=== PATIENT | female | born 1985 | race African-American/Black ===

== ENCOUNTER 2022-04-04 20:58 | Emergency (ER) | payer SELFPAY | END 2022-04-05 01:00 | disposition home or self-care (01) | LOC: CSHERS 20:58 | DX: O99.891 Other specified diseases and conditions complicating pregnancy (principal); R10.9 Unspecified abdominal pain; O99.331 Smoking (tobacco) complicating pregnancy, first trimester; F17.210 Nicotine dependence, cigarettes, uncomplicated; Z3A.01 Less than 8 weeks gestation of pregnancy | CPT/HCPCS: 76856 ==

== ENCOUNTER 2022-09-19 07:46 | Day surgery (SDC) | payer OTHER ==
[2022-09-19] MEDS ORDERED: hydrALAZINE 20 MG/ML VIAL SLOW IVP PRN (08:10)
[2022-09-19 08:18] VITALS: BMI 37.5
[2022-09-19] MEDS ORDERED: Lactated Ringer's 1,000 ML IV SCH (08:45)
[2022-09-19 09:35] LABS: #Eosinphils 0.1 10x3/uL (0.0-0.5); #Monocytes 0.7 10x3/uL (0.0-1.1); #Neutrophils 6.9 10x3/uL (1.5-8.4); %Basophils 0.1 % (0.0-2.0); %Eosinophils 0.9 % (0.0-6.0); %Lymphocytes 17.6 % (18.0-47.0); %Monocytes 7.4 % (0.0-10.0); %Neutrophils 73.1 % (40.0-75.0); Hemoglobin 10.1 g/dL (12.0-15.5); Mean Corpuscular HGB CONC 32.6 g/dL (32.0-36.0); Mean Corpuscular Hemoglobin 30.2 pg (27.0-33.0); Mean Corpuscular Volume 92.8 fl (81.6-98.3); Mean Platelet Volume 10.7 fl (7.4-10.4); Platelet Count 206 10x3/uL (150-450); RBC Distribution Width 13.5 % (11.5-14.5); Red Blood Cell (RBC) Count 3.34 10x6/uL (3.90-5.03); White Blood Cell (WBC) Count 9.4 10x3/uL (3.5-10.5)
[2022-09-19 09:36] LABS: ALT (SGPT) 12 U/L (8-55); AST (SGOT) 10 U/L (5-34); Alkaline Phosphatase 48 U/L (40-110); Anion Gap 13 mmol/L (10-20); BUN (Urea Nitrogen) 7 mg/dL (7.0-18.7); Bilirubin, Total 0.2 mg/dL (0.2-1.2); Calc. Creatinine Clearance 176 mL/min (70-130); Calcium 8.8 mg/dL (7.8-10.44); Carbon Dioxide 23 mmol/L (22-29); Chloride 104 mmol/L (98-107); Estimated GFR 117; Globulin 2.8 g/dL (2.4-3.5); Glucose 141 mg/dL (70-105); Protein, Total 5.8 g/dL (6.0-8.3); Sodium 137 mmol/L (136-145)
[2022-09-19 10:48] LABS: Bilirubin Neg (Negative); Blood, Urine 10 (Negative); Clarity Clear (Clear); Glucose, Urine (Dipstick) Normal (Negative); Ketone, Urine 5 mg/dL (Negative); Leukocyte 25 (Negative); Nitrite Negative (Negative); Protein, Urine (Dipstick) Negative (Neg-Trace); Specific Gravity, Urine 1.015 (1.005-1.030)
[2022-09-19 11:02] LABS: Bacteria/HPF Rare-Few HPF (None Seen); CAUTI Indications for Culture Pregnancy; RBC/HPF 0-3 HPF (0-3); Squamous Epithelial 0-3 HPF (0-3); Urine Culture Reflex Yes Yes; WBC/HPF 0-3 HPF (0-3)
== END 2022-09-19 11:10 | disposition home or self-care (01) ==
LOC: CSHLD/OP 07:46
PROVIDERS: ATTEND Family Medicine
DX: O26.893 Other specified pregnancy related conditions, third trimester (principal); R10.2 Pelvic and perineal pain; O24.419 Gestational diabetes mellitus in pregnancy, unspecified control; O99.343 Other mental disorders complicating pregnancy, third trimester; F41.9 Anxiety disorder, unspecified; O34.211 Maternal care for low transverse scar from previous cesarean delivery; O09.213 Supervision of pregnancy with history of pre-term labor, third trimester; O99.013 Anemia complicating pregnancy, third trimester; D64.9 Anemia, unspecified; O99.283 Endocrine, nutritional and metabolic diseases complicating pregnancy, third trimester; E86.0 Dehydration; Z87.59 Personal history of other complications of pregnancy, childbirth and the puerperium; Z3A.29 29 weeks gestation of pregnancy
CPT/HCPCS: 36415; 80053; 81001; 85025; 87086

== ENCOUNTER 2022-10-18 15:39 | Observation (INO) | payer OTHER ==
[2022-10-18 16:17] VITALS: BMI 38.9
[2022-10-18] MEDS ORDERED: hydrALAZINE 20 MG/ML VIAL SLOW IVP PRN (16:47)
[2022-10-18] MEDS ORDERED: Lactated Ringer's 1,000 ML IV SCH ×3 (17:00→22:15)
[2022-10-18 17:17] LABS: Bilirubin Neg (Negative); Blood, Urine 10 (Negative); Clarity Clear (Clear); Glucose, Urine (Dipstick) Normal (Negative); Ketone, Urine 50 mg/dL (Negative); Leukocyte 25 (Negative); Nitrite Negative (Negative); Protein, Urine (Dipstick) 30 mg/dl (Neg-Trace); Specific Gravity, Urine 1.025 (1.005-1.030); Urobilinogen Normal mg/dL (Less than 2)
[2022-10-18 17:42] LABS: Bacteria/HPF Rare-Few HPF (None Seen); RBC/HPF 0-3 HPF (0-3); Squamous Epithelial 0-3 HPF (0-3); WBC/HPF 0-3 HPF (0-3)
[2022-10-18 17:43] LABS: Mucous/LPF 2+ LPF (<2+)
[2022-10-18 18:03] LABS: #Eosinphils 0.1 10x3/uL (0.0-0.5); #Monocytes 0.7 10x3/uL (0.0-1.1); #Neutrophils 5.5 10x3/uL (1.5-8.4); %Basophils 0.3 % (0.0-2.0); %Eosinophils 1.5 % (0.0-6.0); %Lymphocytes 20.5 % (18.0-47.0); %Monocytes 8.8 % (0.0-10.0); %Neutrophils 68.6 % (40.0-75.0); Hemoglobin 10.2 g/dL (12.0-15.5); Mean Corpuscular HGB CONC 32.9 g/dL (32.0-36.0); Mean Corpuscular Hemoglobin 31.1 pg (27.0-33.0); Mean Corpuscular Volume 94.5 fl (81.6-98.3); Mean Platelet Volume 10.8 fl (7.4-10.4); Platelet Count 212 10x3/uL (150-450); RBC Distribution Width 14.4 % (11.5-14.5); Red Blood Cell (RBC) Count 3.28 10x6/uL (3.90-5.03)
[2022-10-18 18:08] LABS: ALT (SGPT) 17 U/L (8-55); AST (SGOT) 16 U/L (5-34); Albumin 3.3 g/dL (3.5-5.0); Alkaline Phosphatase 84 U/L (40-110); Anion Gap 12 mmol/L (10-20); BUN (Urea Nitrogen) Less than 4 mg/dL (7.0-18.7); Bilirubin, Total 0.3 mg/dL (0.2-1.2); Calc. Creatinine Clearance 205 mL/min (70-130); Calcium 9.1 mg/dL (7.8-10.44); Carbon Dioxide 20 mmol/L (22-29); Chloride 107 mmol/L (98-107); Estimated GFR 120; Globulin 3.1 g/dL (2.4-3.5); Glucose 73 mg/dL (70-105); Protein, Total 6.4 g/dL (6.0-8.3); Sodium 136 mmol/L (136-145)
[2022-10-18] MEDS ORDERED: Morphine 4 MG/ML VIAL SLOW IVP PRN (19:55)
[2022-10-18] MEDS ORDERED: Potassium Chloride 20 MEQ TAB PO SCH (20:00)
[2022-10-18] MEDS: Terbutaline Sulfate 1 MG/ML VIAL SC PRN ×3 (22:11→22:56)
[2022-10-19] MEDS ORDERED: Promethazine HCl 25 MG/ML VIAL IM PRN (00:11)
[2022-10-19] MEDS ORDERED: Ondansetron PF 4 MG/2 ML Vial IVP PRN (00:13)
[2022-10-19] MEDS ORDERED: Tranexamic Acid 1,000 MG/10 ML VIAL IVP PRN (00:14)
[2022-10-19] MEDS ORDERED: Misoprostol 200 MCG TAB PR PRN (00:14)
[2022-10-19] MEDS ORDERED: Methylergonovine 0.2 MG/ML VIAL IM PRN (00:14)
[2022-10-19] MEDS ORDERED: Diphenoxylate HCl/Atropine Tablet PO PRN (00:14)
[2022-10-19] MEDS ORDERED: Carboprost 250 MCG/ML AMP IM PRN (00:14)
[2022-10-19] MEDS ORDERED: NS w/ Oxytocin 30 units 500 ML IV SCH (00:30)
[2022-10-19] MEDS ORDERED: Betamet Acet/Betamet Na Ph 30 MG/5 ML VIAL IM SCH (00:30)
[2022-10-19] MEDS ORDERED: Morphine 4 MG/ML VIAL SLOW IVP SCH (00:30)
[2022-10-19 01:10] LABS: Hemoglobin 10.1 g/dL (12.0-15.5); Mean Corpuscular HGB CONC 32.7 g/dL (32.0-36.0); Mean Corpuscular Hemoglobin 30.9 pg (27.0-33.0); Mean Corpuscular Volume 94.5 fl (81.6-98.3); Mean Platelet Volume 11.2 fl (7.4-10.4); Platelet Count 226 10x3/uL (150-450); RBC Distribution Width 14.5 % (11.5-14.5); Red Blood Cell (RBC) Count 3.27 10x6/uL (3.90-5.03); White Blood Cell (WBC) Count 8.2 10x3/uL (3.5-10.5)
[2022-10-19 01:42] LABS: HBSAg Index 0.17 S/CO (0-0.99); Hep B Surf Ag - L&D Non-Reactive S/CO (NonReactive)
[2022-10-19 01:44] LABS: Syphilis Antibody Nonreactive (Nonreactive); Syphilis Antibody Index 0.05 S/CO (<1.00 Non-Reactive)
[2022-10-19] MEDS ORDERED: Morphine 4 MG/ML VIAL ONE (05:50)
== END 2022-10-19 09:40 | disposition home or self-care (01) ==
LOC: CSHLD/OP 15:39 → CSHLD 10-19 00:16
PROVIDERS: ADMIT Family Medicine; ATTEND Family Medicine
DX: O99.613 Diseases of the digestive system complicating pregnancy, third trimester (principal); R19.7 Diarrhea, unspecified; O99.283 Endocrine, nutritional and metabolic diseases complicating pregnancy, third trimester; E87.6 Hypokalemia; O99.333 Smoking (tobacco) complicating pregnancy, third trimester; F17.210 Nicotine dependence, cigarettes, uncomplicated; O99.343 Other mental disorders complicating pregnancy, third trimester; F32.A Depression, unspecified; O16.3 Unspecified maternal hypertension, third trimester; Z3A.33 33 weeks gestation of pregnancy; Z79.899 Other long term (current) drug therapy
CPT/HCPCS: 36415; 51701; 80053; 81001; 85025; 85027; 86780; 86850; 86900; 86901; 87340; 96360; 96361; 96372; 96374; 96375; 96376; 99284; G0378; J0702; J2270; J2550; J3105

== ENCOUNTER 2022-10-20 21:18 | Observation (INO) | payer OTHER ==
[2022-10-20] MEDS ORDERED: hydrALAZINE 20 MG/ML VIAL SLOW IVP PRN (21:43)
[2022-10-20 21:46] VITALS: BMI 38.9
[2022-10-20] MEDS ORDERED: Lactated Ringer's 1,000 ML IV SCH (22:00)
[2022-10-20] MEDS ORDERED: Terbutaline Sulfate 1 MG/ML VIAL SC PRN (23:37)
[2022-10-20] MEDS ORDERED: Terbutaline Sulfate 1 MG/ML VIAL ONE (23:41)
[2022-10-20] MEDS ORDERED: Morphine 4 MG/ML VIAL ONE (23:41)
[2022-10-20] MEDS ORDERED: Morphine 4 MG/ML VIAL SLOW IVP SCH (23:45)
== END 2022-10-21 00:55 | disposition left against medical advice (07) ==
LOC: CSHLD/OP 21:18 → CSHLD 23:34
PROVIDERS: ADMIT Family Medicine; ATTEND Family Medicine
DX: O47.03 False labor before 37 completed weeks of gestation, third trimester (principal); O99.333 Smoking (tobacco) complicating pregnancy, third trimester; F17.200 Nicotine dependence, unspecified, uncomplicated; O16.3 Unspecified maternal hypertension, third trimester; Z3A.33 33 weeks gestation of pregnancy; Z79.899 Other long term (current) drug therapy
CPT/HCPCS: 76816; 76819; 87480; 87510; 87660; 99285; G0378

== ENCOUNTER 2022-11-04 00:24 | Inpatient (IN) | payer OTHER ==
[2022-11-04 00:51] VITALS: BMI 38.4
[2022-11-04] MEDS ORDERED: hydrALAZINE 20 MG/ML VIAL SLOW IVP PRN ×3 (02:13→10:37)
[2022-11-04] MEDS ORDERED: Famotidine/PF 20 mg/2ml Vial SLOW IVP PRN (08:16)
[2022-11-04] MEDS ORDERED: Ondansetron PF 4 MG/2 ML Vial IVP PRN ×2 (08:16→10:37)
[2022-11-04] MEDS ORDERED: Diphenoxylate HCl/Atropine Tablet PO PRN (08:16)
[2022-11-04] MEDS ORDERED: Carboprost 250 MCG/ML AMP IM PRN (08:16)
[2022-11-04] MEDS ORDERED: Bicitra 30 ML UDCUP PO PRN (08:16)
[2022-11-04] MEDS ORDERED: Misoprostol 200 MCG TAB PR PRN ×2 (08:16→10:37)
[2022-11-04] MEDS ORDERED: Tranexamic Acid 1,000 MG/10 ML VIAL IVP PRN (08:16)
[2022-11-04] MEDS ORDERED: Promethazine HCl 25 MG/ML VIAL IM PRN ×2 (08:16→10:37)
[2022-11-04] MEDS ORDERED: CEFAZOLIN 2 GM in Sodium Chloride 0.9% 100 ML IVPB SCH (08:30)
[2022-11-04] MEDS ORDERED: NS w/ Oxytocin 30 units 500 ML IV SCH (08:30)
[2022-11-04 09:07] LABS: Hemoglobin 10.5 g/dL (12.0-15.5); Mean Corpuscular HGB CONC 31.9 g/dL (32.0-36.0); Mean Platelet Volume 11.5 fl (7.4-10.4); Platelet Count 270 10x3/uL (150-450); RBC Distribution Width 14.1 % (11.5-14.5)
[2022-11-04] MEDS ORDERED: Morphine PF 10 MG/10 ML VIAL ONE (09:11)
[2022-11-04] MEDS ORDERED: Oxytocin 10 UNITS/ML VIAL ONE ×2 (09:33→10:11)
[2022-11-04] MEDS ORDERED: PHENYLEPHRINE-NS 100 MCG/ML 10 ML SYRINGE ONE (09:33)
[2022-11-04 09:38] LABS: Syphilis Antibody Nonreactive (Nonreactive); Syphilis Antibody Index 0.04 S/CO (<1.00 Non-Reactive)
[2022-11-04] MEDS ORDERED: ePHEDrine Sulfate 50 MG/10 ML VIAL ONE (10:08)
[2022-11-04 10:16] LABS: HBSAg Index 0.14 S/CO (0-0.99); Hep B Surf Ag - L&D Non-Reactive S/CO (NonReactive)
[2022-11-04 10:29] LABS: RapidComm Collect By CBN
[2022-11-04 10:31] LABS: RapidComm Collect By CBN; pH (Cord, venous) 6.976 (7.250-7.350)
[2022-11-04] MEDS ORDERED: Fentanyl 100 MCG/2 ML VIAL SLOW IVP PRN (10:37)
[2022-11-04] MEDS ORDERED: Meperidine HCl/PF 25 MG/ML VIAL SLOW IVP PRN (10:37)
[2022-11-04] MEDS ORDERED: diphenhydrAMINE 50 MG/ML VIAL IVP PRN (10:37)
[2022-11-04] MEDS ORDERED: Promethazine HCl 25 MG SUPP PR PRN (10:37)
[2022-11-04] MEDS ORDERED: Boostrix 0.5 ML (Tdap) VIAL (>/=7 yrs of age) IM ONE (10:37)
[2022-11-04] MEDS ORDERED: Naloxone HCl 0.4 mg/ml Vial IVP PRN ×2 (10:37)
[2022-11-04] MEDS ORDERED: Moisturizing Cream (Eucerin) 113 GM JAR TOP PRN (10:37)
[2022-11-04] MEDS ORDERED: HYDROmorphone 2 MG/ML VIAL SLOW IVP PRN (10:37)
[2022-11-04] MEDS ORDERED: Lanolin Ointment 7 GM TUBE TOP PRN (10:37)
[2022-11-04] MEDS ORDERED: Bisacodyl 10 MG SUPP PR PRN (10:37)
[2022-11-04] MEDS ORDERED: Ondansetron HCl/PF 4 MG/2 ML Vial IVP PRN (10:37)
[2022-11-04] MEDS ORDERED: Simethicone Chewable 80 MG TAB PO PRN (10:37)
[2022-11-04] MEDS ORDERED: Naloxone HCl 0.4 mg/ml Vial IV PRN (10:37)
[2022-11-04] MEDS ORDERED: Communication Order-Pharmacy FS SCH (10:45)
[2022-11-04] MEDS ORDERED: Ketorolac Tromethamine 30 MG/ML VIAL IVP SCH (10:45)
[2022-11-04 11:29] LABS: HIV (1/2) Antibody/Antigen Non-Reactive (NonReactive); HIV 1/2 INDEX 0.06 S/CO (<1.00)
[2022-11-04] MEDS ORDERED: Meperidine HCl/PF 25 MG/ML VIAL ONE (12:13)
[2022-11-04] MEDS ORDERED: Ketorolac Tromethamine 30 MG/ML VIAL ONE (12:15)
[2022-11-04] MEDS: Ketorolac Tromethamine 30 MG/ML VIAL IVP PRN ×2 (12:16→20:22)
[2022-11-04] MEDS ORDERED: fentaNYL 50 mcg/mL 1 mL Vial ONE (12:49)
[2022-11-04] MEDS: Lactated Ringer's 1,000 ML IV SCH ×3 (13:58→22:15)
[2022-11-04] MEDS ORDERED: Ibuprofen 800 MG TAB PO SCH (14:00)
[2022-11-04] MEDS: Docusate 100 MG CAP PO SCH (22:09)
[2022-11-05 04:08] LABS: Hemoglobin 6.7 g/dL (12.0-15.5); Mean Corpuscular HGB CONC 32.4 g/dL (32.0-36.0); Mean Corpuscular Hemoglobin 30.2 pg (27.0-33.0); Mean Corpuscular Volume 93.2 fl (81.6-98.3); Mean Platelet Volume 11.1 fl (7.4-10.4); Platelet Count 219 10x3/uL (150-450); RBC Distribution Width 13.8 % (11.5-14.5); Red Blood Cell (RBC) Count 2.22 10x6/uL (3.90-5.03); White Blood Cell (WBC) Count 13.4 10x3/uL (3.5-10.5)
[2022-11-05] MEDS: Acetaminophen/Codeine 30-300mg Tablet PO PRN ×3 (06:43→19:43)
[2022-11-05] MEDS: Ferrous Sulfate 325 MG TAB PO SCH ×3 (07:03→19:43)
[2022-11-05] MEDS: Prenatal Vitamin 1 TAB PO SCH (08:59)
[2022-11-05] MEDS: Ketorolac Tromethamine 30 MG/ML VIAL IVP PRN (08:59)
[2022-11-05] MEDS: Docusate 100 MG CAP PO SCH ×2 (08:59→19:43)
[2022-11-05] MEDS: Lactated Ringer's 1,000 ML IV SCH ×2 (09:48→17:31)
[2022-11-05] MEDS ORDERED: hydrOXYzine 25 MG TAB PO PRN (09:54)
[2022-11-05] MEDS ORDERED: hydrOXYzine 25 MG TAB PO SCH (10:00)
[2022-11-05 10:13] LABS: Hemoglobin 6.9 g/dL (12.0-15.5)
[2022-11-05] MEDS: FLUoxetine HCl 20 MG CAP PO SCH (10:46)
[2022-11-05] MEDS: Benztropine 1 MG TAB PO SCH (10:46)
[2022-11-05] MEDS: Aripiprazole 10 MG TAB PO SCH (10:46)
[2022-11-05] MEDS ORDERED: Hydrochlorothiazide 25 MG TAB PO SCH (12:45)
[2022-11-05] MEDS: Ibuprofen 800 MG TAB PO SCH (17:58)
[2022-11-06] MEDS: Ibuprofen 800 MG TAB PO SCH ×3 (01:17→17:32)
[2022-11-06] MEDS: Acetaminophen/Codeine 30-300mg Tablet PO PRN ×3 (01:17→22:15)
[2022-11-06] MEDS: Lactated Ringer's 1,000 ML IV SCH ×3 (01:19→17:33)
[2022-11-06 04:53] LABS: Mean Corpuscular HGB CONC 33.3 g/dL (32.0-36.0); Mean Corpuscular Volume 90.1 fl (81.6-98.3); Mean Platelet Volume 11.5 fl (7.4-10.4); Platelet Count 250 10x3/uL (150-450); RBC Distribution Width 14.6 % (11.5-14.5); Red Blood Cell (RBC) Count 2.33 10x6/uL (3.90-5.03); White Blood Cell (WBC) Count 12.8 10x3/uL (3.5-10.5)
[2022-11-06] MEDS ORDERED: diphenhydrAMINE 25 MG CAP PO SCH (07:00)
[2022-11-06] MEDS ORDERED: Acetaminophen 325 MG TAB PO SCH (07:00)
[2022-11-06] MEDS: Benztropine 1 MG TAB PO SCH (08:34)
[2022-11-06] MEDS: Aripiprazole 10 MG TAB PO SCH (08:35)
[2022-11-06] MEDS: Prenatal Vitamin 1 TAB PO SCH (08:35)
[2022-11-06] MEDS: Hydrochlorothiazide 25 MG TAB PO SCH (08:36)
[2022-11-06] MEDS: Ferrous Sulfate 325 MG TAB PO SCH ×2 (08:36→22:15)
[2022-11-06] MEDS: Docusate 100 MG CAP PO SCH ×2 (08:36→22:15)
[2022-11-06] MEDS: FLUoxetine HCl 20 MG CAP PO SCH (08:37)
[2022-11-06 13:13] LABS: Hemoglobin 7.8 g/dL (12.0-15.5)
[2022-11-07] MEDS: Lactated Ringer's 1,000 ML IV SCH ×2 (00:55→00:56)
[2022-11-07] MEDS: Ibuprofen 800 MG TAB PO SCH ×2 (00:58→10:00)
[2022-11-07] MEDS: Acetaminophen/Codeine 30-300mg Tablet PO PRN ×2 (03:45→08:28)
[2022-11-07] MEDS: Benztropine 1 MG TAB PO SCH (08:26)
[2022-11-07] MEDS: FLUoxetine HCl 20 MG CAP PO SCH (08:27)
[2022-11-07] MEDS: Aripiprazole 10 MG TAB PO SCH (08:28)
[2022-11-07] MEDS: Ferrous Sulfate 325 MG TAB PO SCH (08:28)
[2022-11-07] MEDS: Prenatal Vitamin 1 TAB PO SCH (08:28)
[2022-11-07] MEDS: Hydrochlorothiazide 25 MG TAB PO SCH (08:28)
[2022-11-07] MEDS: Docusate 100 MG CAP PO SCH (08:28)
[2022-11-07 11:19] VITALS: BP 129/73; TEMP 97.8
== END 2022-11-07 13:55 | disposition home or self-care (01) | DRG 787 ==
LOC: CSHLD/OP 00:24 → CSHLD 08:16 → CSHPP 13:14
PROVIDERS: ADMIT Obstetrics & Gynecology; ATTEND Obstetrics & Gynecology
PROC: 10D00Z1 Extraction of Products of Conception, Low, Open Approach (ICD-10-PCS; principal; 2022-11-04)
PROC: 30233N1 Transfusion of Nonautologous Red Blood Cells into Peripheral Vein, Percutaneous Approach (ICD-10-PCS; 2022-11-05)
DX: O60.14X0 Preterm labor third trimester with preterm delivery third trimester, not applicable or unspecified (principal); D62 Acute posthemorrhagic anemia; O10.92 Unspecified pre-existing hypertension complicating childbirth; O76 Abnormality in fetal heart rate and rhythm complicating labor and delivery; O90.81 Anemia of the puerperium; Z3A.36 36 weeks gestation of pregnancy; Z37.0 Single live birth; O34.211 Maternal care for low transverse scar from previous cesarean delivery; O99.334 Smoking (tobacco) complicating childbirth; Z98.890 Other specified postprocedural states; Z79.82 Long term (current) use of aspirin; Z79.899 Other long term (current) drug therapy; O99.344 Other mental disorders complicating childbirth; F31.9 Bipolar disorder, unspecified; F17.210 Nicotine dependence, cigarettes, uncomplicated; O43.893 Other placental disorders, third trimester; O24.420 Gestational diabetes mellitus in childbirth, diet controlled
CPT/HCPCS: 36415; 36430; 51702; 76819; 82805; 85027; 86780; 86850; 86900; 86901; 87340; 87389; 88307; 99285; J1200; J1885; J2175; J2274; J2590; J3010; J3490; J7120; P9016; S0028